=== PATIENT | male | born 1960 | race Caucasian/White ===

== ENCOUNTER 2019-05-02 09:16 | Emergency (ER) | payer BC ==
[2019-05-02] MEDS ORDERED: Oseltamivir 75 MG Cap PO ONE (09:36)
--- NOTE | 2019-05-02 10:27 | EDM.PDOC ---
ED HPI GENERAL MEDICAL PROBLEM - General Chief Complaint: Respiratory Problem Stated Complaint: FLU SYMPTOMS Time Seen by Provider: 05/02/19 10:00 Source of Information: Reports: Patient History Limitations: Reports: No Limitations - History of Present Illness Onset: Gradual (for one day.) Location: Reports: Chest (coughing and congestion.) Severity: Mild Improves with: Reports: None Worsens with: Reports: None Associated Symptoms: Reports: cough w sputum (yellow sputum at times.) Body Pain Score (Numeric/FACES): 4 - Related Data Allergies Allergy/AdvReac Type Severity Reaction Status Date / Time codeine Allergy Rash Verified 05/02/19 09:28 Home Meds: Home Meds Finasteride [Propecia] 1 tab PO DAILY 07/12/15 [History] Oseltamivir [Tamiflu] 75 mg PO BID #10 cap 05/02/19 [Rx] Past Medical History Cardiovascular History: Reports: Arrhythmia Musculoskeletal History: Reports: Other (See Below) Other Musculoskeletal History: pagetts disease - Infectious Disease History Infectious Disease History: Reports: None - Past Surgical History Cardiovascular Surgical History: Reports: Cardiac Ablation Musculoskeletal Surgical History: Reports: Other (See Below) Social & Family History - Family History Family Medical History: Noncontributory Oncologic: Reports: Breast - Tobacco Use Smoking Status *Q: Never Smoker - Caffeine Use Caffeine Use: Reports: Coffee - Recreational Drug Use Recreational Drug Use: No ED ROS GENERAL - Review of Systems Review Of Systems: See Below Constitutional: Reports: Fever, Malaise, Fatigue. Denies: Diaphoresis HEENT: Reports: Rhinitis. Denies: Throat Pain, Throat Swelling, Vertigo Respiratory: Reports: Cough. Denies: Shortness of Breath, Wheezing, Pleuritic Chest Pain, Hemoptysis Cardiovascular: Reports: No Symptoms Endocrine: Reports: No Symptoms GI/Abdominal: Reports: No Symptoms : Reports: No Symptoms Musculoskeletal: Reports: No Symptoms Skin: Reports: No Symptoms Neurological: Reports: No Symptoms Psychiatric: Reports: No Symptoms Hematologic/Lymphatic: Reports: No Symptoms Immunologic: Reports: No Symptoms ED EXAM, GENERAL - Physical Exam Exam: See Below Exam Limited By: No Limitations General Appearance: Alert, WD/WN, No Apparent Distress Eye Exam: Bilateral Eye: Normal Fundi, Normal Inspection, PERRL Ears: Normal External Exam, Normal Canal, Hearing Grossly Normal, Normal TMs Ear Exam: Bilateral Ear: Auricle Normal, Canal Normal, TM normal Nose: Normal Inspection, Normal Mucosa, No Blood Throat/Mouth: Normal Inspection, Normal Lips, Normal Teeth, Normal Gums, Normal Oropharynx, Normal Voice, No Airway Compromise Head: Atraumatic, Normocephalic Neck: Normal Inspection, Supple, Non-Tender, Full Range of Motion Respiratory/Chest: Lungs Clear, Normal Breath Sounds. No: Crackles, Rales, Rhonchi, Wheezing, Prolonged Expiration Cardiovascular: Normal Peripheral Pulses, Regular Rate, Rhythm, No Edema, No Gallop, No JVD, No Murmur, No Rub Peripheral Pulses: 3+: Radial (L), Radial (R), Dorsalis Pedis (L), Dorsalis Pedis (R), 4+: Carotid (L), Carotid (R) GI/Abdominal: Normal Bowel Sounds, Soft, Non-Tender, No Organomegaly, No Distention, No Abnormal Bruit, No Mass Back Exam: Normal Inspection, Full Range of Motion, NT Extremities: Normal Inspection, Normal Range of Motion, Non-Tender, Normal Capillary Refill, No Pedal Edema Neurological: Alert, Oriented, CN II-XII Intact, Normal Cognition, Normal Gait, Normal Reflexes, No Motor/Sensory Deficits Psychiatric: Normal Affect, Normal Mood Skin Exam: Warm, Dry, Intact, Normal Color, No Rash Lymphatic: No Adenopathy Course - Vital Signs Text/Narrative:: I discussed with the patient all of his lab and x-ray findings. He has Influ B and will be treated with Tamiflu 75mg. I did not see any pneumonia on his chest x-ray but he does have increased bilateral markings in the perihilar area. I told him that if it is positive for pneumonia we will call him back. The patient agrees with the plan. He will be discharged at this time. Last Recorded V/S: Last Vital Signs Temp 96.3 F 05/02/19 09:29 Pulse 99 05/02/19 09:29 Resp 17 05/02/19 09:29 BP 140/101 H 05/02/19 09:29 Pulse Ox 95 05/02/19 09:29 - Orders/Labs/Meds Orders: Active Orders 24 hr Category Date Time Status Chest 2V [CR] Stat Exams 05/02/19 09:34 Taken Labs: Laboratory Tests 05/02/19 05/02/19 Range/Units 09:46 09:46 WBC 4.04 (4.0-11.0) K/uL RBC 4.96 (4.50-5.90) M/uL Hgb 15.0 (13.0-17.0) g/dL Hct 44.1 (38.0-50.0) % MCV 88.9 (80.0-98.0) fL MCH 30.2 (27.0-32.0) pg MCHC 34.0 (31.0-37.0) g/dL RDW Std Deviation 42.7 (28.0-62.0) fl RDW Coeff of Johnny 13 (11.0-15.0) % Plt Count 120 L (150-400) K/uL MPV 10.10 (7.40-12.00) fL Neut % (Auto) 69.8 (48.0-80.0) % Lymph % (Auto) 10.6 L (16.0-40.0) % Craven % (Auto) 18.1 H (0.0-15.0) % Eos % (Auto) 1.0 (0.0-7.0) % Baso % (Auto) 0.5 (0.0-1.5) % Neut # (Auto) 2.8 (1.4-5.7) K/uL Lymph # (Auto) 0.4 L (0.6-2.4) K/uL Craven # (Auto) 0.7 (0.0-0.8) K/uL Eos # (Auto) 0.0 (0.0-0.7) K/uL Baso # (Auto) 0.0 (0.0-0.1) K/uL Nucleated RBC % 0.0 /100WBC Nucleated RBCs # 0 K/uL Sodium 139 (136-148) mmol/L Potassium 4.3 (3.5-5.1) mmol/L Chloride 104 (98-107) mmol/L Carbon Dioxide 24.0 (21.0-32.0) mmol/L BUN 18 (7.0-18.0) mg/dL Creatinine 0.8 (0.8-1.3) mg/dL Est Cr Clr Drug Dosing 126.58 mL/min Estimated GFR (MDRD) > 60.0 ml/min Glucose 80 (74-106) mg/dL Calcium 8.2 L (8.5-10.1) mg/dL Total Bilirubin 0.3 (0.2-1.0) mg/dL AST 35 (15-37) IU/L ALT 60 (14-63) IU/L Alkaline Phosphatase 80 (46-116) U/L Total Protein 6.7 (6.4-8.2) g/dL Albumin 3.7 (3.4-5.0) g/dL Globulin 3.0 (2.6-4.0) g/dL Albumin/Globulin Ratio 1.2 (0.9-1.6) Meds: Medications Discontinued Medications Generic Name Dose Route Start Last Admin Trade Name Freq PRN Reason Stop Dose Admin Oseltamivir Phosphate 75 mg 05/02/19 09:36 05/02/19 09:42 Tamiflu PO 05/02/19 09:37 75 mg ONETIME ONE Administration Departure - Departure Time of Disposition: 11:52 Disposition: Home, Self-Care 01 Condition: Good Clinical Impression: Influenza B - Discharge Information *PRESCRIPTION DRUG MONITORING PROGRAM REVIEWED*: Yes *COPY OF PRESCRIPTION DRUG MONITORING REPORT IN PATIENT SATISH: Yes Referrals: Jordan Kaplan MD [Primary Care Provider] - Forms: ED Department Discharge Sepsis Event Note - Evaluation Sepsis Screening Result: Possible Sepsis Risk - Focused Exam Vital Signs: Vital Signs Temp Pulse Resp BP Pulse Ox 05/02/19 09:29 96.3 F 99 17 140/101 H 95 Date Exam was Performed: 05/02/19 Time Exam was Performed: 11:35 - My Orders Last 24 Hours: My Active Orders 05/02/19 09:34 Chest 2V [CR] Stat - Assessment/Plan Last 24 Hours: My Active Orders 05/02/19 09:34 Chest 2V [CR] Stat
[2019-05-02 10:32] LABS: BLOOD UREA NITROGEN,BUN 18 mg/dL (7.0-18.0); CHLORIDE,CL 104 mmol/L (98-107); GLUCOSE RANDOM 80 mg/dL (74-106); POTASSIUM,K 4.3 mmol/L (3.5-5.1); SODIUM,NA 139 mmol/L (136-148)
[2019-05-02 12:26] VITALS: BP 137/107; PULSE 85
--- NOTE | 2019-05-06 16:21 | CR ---
Final Report: Indication: Cough Technique: Two views of the chest Comparison: None Findings: Lungs: The lungs are clear. Mediastinum: Heart size and pulmonary vasculature are normal. Bones/soft tissues: There is no fracture. Soft tissues are normal. Impression: Clear lungs Dictated by Jacky Dunbar MD @ May 02 2019 10:21AM Signed by: Jacky Dunbar MD @05/02/2019 10:22:24 AM (Electronic Signature) MTDD
== END 2019-05-02 12:26 | disposition home or self-care (01) ==
LOC: MW.ED 09:16
DX: J10.1 Influenza due to other identified influenza virus with other respiratory manifestations (principal); Z88.5 Allergy status to narcotic agent
CPT/HCPCS: 36415; 71046; 80053; 85025; 87804; 99283; A9270

== ENCOUNTER 2023-01-07 21:52 | Emergency (ER) | payer BC ==
[2023-01-07] MEDS ORDERED: Sodium Chloride 0.9% 10 ML Syringe FLUSH PRN (22:25)
[2023-01-07] MEDS ORDERED: Sodium Chloride 0.9% 2.5 ML Syringe FLUSH PRN (22:25)
[2023-01-07 22:32] LABS: BASOPHILS PERCENT AUTO 0.4 % (0.0-1.5); EOSINOPHILS ABSOLUTE AUTO 0.1 K/uL (0.0-0.7); EOSINOPHILS PERCENT AUTO 1.5 % (0.0-7.0); HEMATOCRIT 47.8 % (38.0-50.0); HEMOGLOBIN 16.5 g/dL (13.0-17.0); LYMPHOCYTES ABSOLUTE AUTO 1.4 K/uL (0.6-2.4); LYMPHOCYTES PERCENT AUTO 20.4 % (16.0-40.0); MEAN CORPUSCULAR HEMOGLOBIN 30.4 pg (27.0-32.0); MEAN CORPUSCULAR HGB CONC 34.5 g/dL (31.0-37.0); MEAN CORPUSCULAR VOLUME 88.2 fL (80.0-98.0); MONOCYTES ABSOLUTE AUTO 0.7 K/uL (0.0-0.8); MONOCYTES PERCENT AUTO 9.6 % (0.0-15.0); NEUTROPHILS ABSOLUTE AUTO 4.6 K/uL (1.4-5.7); NEUTROPHILS PERCENT AUTO 68.1 % (48.0-80.0); NRBC ABSOLUTE 0 K/uL; PLATELET COUNT,PLT 203 K/uL (150-400); RED BLOOD CELL COUNT 5.42 M/uL (4.50-5.90)
[2023-01-07] MEDS ORDERED: Metoprolol Succinate 25 MG Tab.ER PO ONE (22:32)
[2023-01-07 23:01] LABS: A/G RATIO 1.3 (0.9-1.6); ALBUMIN 3.9 g/dL (3.4-5.0); BILIRUBIN TOTAL 0.6 mg/dL (0.2-1.0); CARBON DIOXIDE,CO2 22.2 mmol/L (21.0-32.0); CREATININE 1.2 mg/dL (0.8-1.3); EST CRCL DRUG DOSING (CG) 71.85 mL/min; POTASSIUM,K 3.5 mmol/L (3.5-5.1); PROTEIN TOTAL,TP 6.8 g/dL (6.4-8.2); TSH ULTRASENSITIVE 2.97 uIU/mL (0.36-3.74)
[2023-01-08 00:08] VITALS: BP 131/91; PULSE 80
== END 2023-01-08 00:08 | disposition home or self-care (01) ==
LOC: MW.ED 21:52
DX: I47.1 Supraventricular tachycardia (principal); Z88.8 Allergy status to other drugs, medicaments and biological substances
CPT/HCPCS: 36415; 71045; 80053; 84443; 84484; 85025; 93005; 99285; A9270; J3490; 93010; 99283